=== PATIENT | male | born 1965 | race Caucasian/White ===

== ENCOUNTER → 2016-09-16 | Outpatient (CLI) | payer MEDICARE ==
[~2016-09-16] VITALS: Ht 182.9 cm; Wt 85.3 kg
== END ==
LOC: OPSV 09:30
DX: N18.3 Chronic kidney disease, stage 3 (moderate) (principal); N25.81 Secondary hyperparathyroidism of renal origin
CPT/HCPCS: 96365; 96366; J1756; J7030

== ENCOUNTER → 2016-09-23 | Outpatient (CLI) | payer MEDICARE ==
[~2016-09-23] VITALS: Ht 182.9 cm; Wt 83.9 kg
== END ==
LOC: OPSV 09:23
DX: N18.3 Chronic kidney disease, stage 3 (moderate) (principal); D63.1 Anemia in chronic kidney disease; N25.81 Secondary hyperparathyroidism of renal origin
CPT/HCPCS: 96365; 96366; J1756; J7050

== ENCOUNTER → 2016-12-26 | Outpatient (CLI) | payer MEDICARE | LOC: LBRF 12:07 | DX: N18.3 Chronic kidney disease, stage 3 (moderate) (principal); D50.9 Iron deficiency anemia, unspecified | CPT/HCPCS: 82270 ==